=== PATIENT | female | born 1960 | race African-American/Black ===

== ENCOUNTER 2017-08-09 12:20 | Emergency (ER) | payer MEDICARE, OTHER, MEDICAID ==
[2017-08-09 13:11] LABS: Anion Gap 17 mmol/L (10-20); BUN (Urea Nitrogen) 32 mg/dL (9.8-20.1); Calc. Creatinine Clearance 0 mL/min (70-130); Calcium 9.1 mg/dL (7.8-10.44); Carbon Dioxide 22 mmol/L (22-29); Chloride 104 mmol/L (98-107); Estimated GFR-MDRD 27; Glucose 100 mg/dL (70-105); Potassium 3.3 mmol/L (3.5-5.1); Sodium 140 mmol/L (136-145)
[2017-08-09] MEDS ORDERED: Dexamethasone 4 mg/ml Vial ONE (13:19)
[2017-08-09] MEDS ORDERED: Dexamethasone 10 MG/ML VIAL ONE (13:19)
== END 2017-08-09 13:37 | disposition home or self-care (01) ==
LOC: SCSER 12:20
DX: M10.9 Gout, unspecified (principal); G40.909 Epilepsy, unspecified, not intractable, without status epilepticus; E11.9 Type 2 diabetes mellitus without complications; E78.5 Hyperlipidemia, unspecified; I10 Essential (primary) hypertension; Z79.84 Long term (current) use of oral hypoglycemic drugs; Z79.899 Other long term (current) drug therapy
CPT/HCPCS: 36415; 80048; 96372; J1100

== ENCOUNTER 2018-10-06 14:53 | Emergency (ER) | payer MEDICARE, MEDICAID ==
--- NOTE | 2018-10-06 15:39 | RAD ---
FOUR VIEWS OF THE RIGHT KNEE: 10/06/18 COMPARISON: None. HISTORY: Right knee pain. FINDINGS: Four views of the right knee shows no evidence of acute fracture or dislocation. No significant dege nerative changes are seen. No knee effusion is present. IMPRESSION: No evidence of acute osseous abnormality. POS: [facility]
== END 2018-10-06 16:04 | disposition home or self-care (01) ==
LOC: SCSER 14:53
DX: K04.4 Acute apical periodontitis of pulpal origin (principal); M25.561 Pain in right knee; E11.9 Type 2 diabetes mellitus without complications; E78.5 Hyperlipidemia, unspecified; I10 Essential (primary) hypertension; M10.9 Gout, unspecified

== ENCOUNTER 2018-10-15 11:38 | Outpatient (CLI) | payer MEDICARE, MEDICAID ==
--- NOTE | 2018-10-15 12:25 | MMO ---
Bilateral MAMMO Bilat Screen [facility]. CLINICAL HISTORY: Patient is 57 years old and is seen for screening. The patient has the following family history of breast cancer: mother, at age 33. The patient has no personal history of cancer. VIEWS: The views performed were: bilateral craniocaudal with tomosynthesis and bilateral mediolateral oblique with tomosynthesis. FILMS COMPARED: The present examination has been compared to prior imaging studies performed at [facility] on 09/23/2012, 07/07/2015 and 05/13/2017. MAMMOGRAM FINDINGS: There are scattered fibroglandular densities. There are stable benign appearing calcifications seen in both breasts. There are no suspicious masses, suspicious calcifications, or new areas of architectural distortion. IMPRESSION: THERE IS NO MAMMOGRAPHIC EVIDENCE OF MALIGNANCY. A ROUTINE FOLLOW-UP MAMMOGRAM IN 1 YEAR IS RECOMMENDED. THE RESULTS OF THIS EXAM WERE SENT TO THE PATIENT. ACR BI-RADS Category 2 - Benign finding MAMMOGRAPHY NOTE: 1. A negative mammogram report should not delay a biopsy if a dominant of clinically suspicious mass is present. 2. Approximately 10% to 15% of breast cancers are not detected by mammography. 3. Adenosis and dense breasts may obscure an underlying neoplasm.
== END 2018-10-15 11:39 | disposition home or self-care (01) ==
LOC: BICMAMMO 11:38
PROVIDERS: ATTEND Nurse Practitioner Family
DX: Z12.31 Encounter for screening mammogram for malignant neoplasm of breast (principal); Z80.3 Family history of malignant neoplasm of breast
CPT/HCPCS: 77063; 77067

== ENCOUNTER 2018-11-30 07:51 | Observation (INO) | payer MEDICARE, MEDICAID ==
[2018-11-30 08:14] LABS: #Eosinphils 0.3 thou/uL (0.0-0.7); #Lymphocytes 2.3 thou/uL (1.20-3.40); #Monocytes 0.6 thou/uL (0.11-0.59); #Neutrophils 4.8 thou/uL (1.40-6.50); %Basophils 0.2 % (0.0-1.0); %Eosinophils 3.5 % (0.0-10.0); %Lymphocytes 29.3 % (21.0-51.0); %Monocytes 7.1 % (0.0-10.0); Hemoglobin 9.2 g/dL (12.0-16.0); Mean Corpuscular HGB CONC 33.3 g/dL (32.0-36.0); Mean Corpuscular Hemoglobin 32.8 pg (27.0-31.0); Mean Corpuscular Volume 98.6 fL (78.0-98.0); Mean Platelet Volume 7.5 fL (7.4-10.4); Platelet Count 422 thou/uL (130-400); RBC Distribution Width 11.5 % (11.5-14.5); Red Blood Cell (RBC) Count 2.82 mill/uL (4.20-5.40)
[2018-11-30 08:15] LABS: Prothrombin Time 12.7 SEC (12.0-14.7)
[2018-11-30 08:16] LABS: PTT 37.7 SEC (22.9-36.1)
[2018-11-30] MEDS ORDERED: Sodium Bicarbonate 2.5 MEQ/5 ML VIAL ONE (10:15)
[2018-11-30] MEDS ORDERED: Midazolam HCl 2 mg/2 ml Vial ONE (10:15)
[2018-11-30] MEDS ORDERED: Fentanyl 100 MCG/2 ML VIAL ONE (10:16)
[2018-11-30 13:49] LABS: Hemoglobin 9.3 g/dL (12.0-16.0); Platelet Count 361 thou/uL (130-400)
--- NOTE | 2018-11-30 16:19 | CT ---
CT-guided random renal biopsy: DATE: 11/30/2018 HISTORY: 58-year-old female with stage IV chronic kidney disease and deteriorating renal function. TECHNIQUE: Signed informed consent obtained. Patient placed prone on CT table. Procedure performed under step CT guidance. Skin of right flank prepared and draped in usual sterile fashion. 25-gauge needle used to apply buffered lidocaine superficially. 17-gauge introducer needle advanced to junction between la teral edge of right psoas muscle and medial edge of posterior abdominal wall musculature. Additional buffered lidocaine applied at that location. Introducer needle further advanced into the p osterior cortex of the lower pole of the right kidney. Stylette removed. 18-gauge biopsy needle advanced through the introducer needle in coaxial fashion. Biopsy gun fired, yielding 2.3 cm core tis leobardo sample which was given to Dr. Brandon of pathology who analyzed the tissue sample under light microscopy, identifying 1 or 2 glomeruli. The 18-gauge needle was again fired into the lower pole par enchyma yielding a second 2.3 cm core tissue sample, also given to the pathologist. The introducer needle was removed. Patient tolerated the procedure well. Immediate post procedure supine scan of ent chitra abdomen and pelvis noncontrast, as per routine by Dr. Viera. Repeat CTs of abdomen and pelvis at 2 hours and 3 hours post biopsy. It was elected to admit the patient overnight for observation becaus e of the retroperitoneal hematoma. The patient is doing well clinically, with no distress or pain, and is alert and oriented. Hemoglobin and hematocrit levels remain stable from preprocedure to post p rocedure. Blood pressure and heart rate remained stable. The patient is hypertensive. FINDINGS: Intraprocedural image demonstrates the introducer needle distal tip embedded a few millimeters into t he posterior cortical surface of the right renal lower pole. CT scan immediately after the biopsy demonstrates moderate size right inferior perirenal hematoma. No free fluid in the cul-de-sac. No hyd ronephrosis. No renal, ureteral, or bladder calculus. No ascites. Within the limitations of a noncontrast scan, no abnormality identified involving liver, pancreas, adrenals, abdominal aorta, lef t kidney, bladder, and spleen. No small bowel dilation. Lung bases are clear. Incidental finding of porcelain gallbladder. 2 hour post procedure image demonstrates slight interval increase in size of r ight inferior perirenal hematoma, and interval increase in density of the fluid, plus new finding of fat stranding around hematoma. Third CT performed 3 hours after procedure demonstrates no interval change compared to the 2 hour post procedure images. IMPRESSION: 1. Technically successful 18-gauge core biopsy x2 of right renal lower pole yielding 2 separate 2.3 c m tissue samples. 2. Moderate-sized right inferior perirenal hematoma. 3. Although the patient is hemodynamically stable and doing very well clinically, she is being admitt ed to the hospitalist overnight for observation, as a precautionary measure.
[2018-11-30 16:57] LABS: Hemoglobin 9.4 g/dL (12.0-16.0)
[2018-11-30 16:59] VITALS: BMI 35.1
[2018-11-30] MEDS ORDERED: Acetaminophen/Codeine 30-300mg Tablet PO PRN (17:37)
[2018-11-30] MEDS ORDERED: Labetalol HCl 100 MG/20 ML VIAL SLOW IVP PRN (18:22)
[2018-11-30] MEDS ORDERED: Acetaminophen 325 MG TAB PO PRN (18:50)
[2018-11-30] MEDS ORDERED: Dextrose 5% in Water 1,000 ML IV PRN (18:50)
[2018-11-30] MEDS ORDERED: Ondansetron PF 4 MG/2 ML Vial IVP PRN (18:50)
[2018-11-30] MEDS ORDERED: Ondansetron ODT 4 MG TAB PO PRN (18:50)
[2018-11-30] MEDS ORDERED: Dextrose 50% Abboject 50 ML SYRINGE SLOW IVP PRN (18:50)
[2018-11-30] MEDS ORDERED: HumaLOG 300 UNITS/3 ML VIAL SC PRN ×2 (18:50)
[2018-11-30 19:27] LABS: Hemoglobin 9.1 g/dL (12.0-16.0); Platelet Count 373 thou/uL (130-400)
[2018-11-30] MEDS: cloNIDine 0.1 MG TAB PO SCH (22:24)
[2018-11-30] MEDS: Lisinopril 20 MG TAB PO SCH (22:24)
[2018-11-30] MEDS: NIFEdipine XL 60 MG TAB PO SCH (22:24)
[2018-12-01 00:38] LABS: Hemoglobin 9.3 g/dL (12.0-16.0); Platelet Count 391 thou/uL (130-400)
--- NOTE | 2018-12-01 03:08 | HP ---
PRIMARY CARE PHYSICIAN: Toshia Kim. CHIEF COMPLAINT: Right perirenal hematoma. HISTORY OF PRESENT ILLNESS: Ms. Connors is a 58-year-old female with past medical history of hypertension, hyperlipidemia, diabetes mellitus, gout, generalized seizure disorder, chronic kidney disease stage 4, who was undergoing a CT-guided renal biopsy earlier today when she had developed a right perirenal hematoma. Repeat image showed that this hematoma was stable, H and H was trended and was found to be also stable. It was further determined the patient be monitored overnight under observation for any worsening or drop in her hemoglobin or other lab work. The patient's primary hazmat cdl driver is Dr. Max. The patient denied any fever, chills, any headache, blurred vision, dizziness, chest pain, palpitations, shortness of breath, abdominal pain, nausea, vomiting, flank pain, or any blood in her urine. She is essentially asymptomatic at this time and shows no symptoms of this hematoma. The patient's blood pressure was found to be slightly elevated. However, she had not taken her home medications earlier. Dr. Max was consulted and will follow along during hospital course. REVIEW OF SYSTEMS: All other systems reviewed and found to be negative unless mentioned in HPI. PAST MEDICAL HISTORY: Significant for hypertension, hyperlipidemia, gout, generalized seizure disorder, diabetes mellitus type 2, chronic kidney disease stage 4. PAST SURGICAL HISTORY: Cholecystectomy and hernia repair. PSYCHIATRIC HISTORY: None. SOCIAL HISTORY: The patient lives at home. She denies any alcohol, tobacco, or illicit drug use. KNOWN ALLERGIES: No known drug allergies. CURRENT HOME MEDICATIONS: 1. Phenytoin 300 mg p.o. daily and 400 mg p.o. at bedtime. 2. Nifedipine 60 mg p.o. b.i.d. 3. Lisinopril 20 mg p.o. b.i.d. 4. Hydrochlorothiazide 25 mg p.o. daily. 5. Clonidine 0.1 mg p.o. t.i.d. 6. Allopurinol 100 mg p.o. daily. 7. Acetaminophen with codeine 300/30 mg p.o. q.6 hours p.r.n. pain. 8. Omeprazole 40 mg p.o. daily. 9. Metformin 1000 mg p.o. b.i.d. 10. Fenofibrate 145 mg p.o. daily. 11. Vitamin D3 2000 units p.o. daily. PHYSICAL EXAMINATION: VITAL SIGNS: BP 161/91, pulse 101, respirations 20, temperature 98.2 degrees Fahrenheit, O2 saturation 97% on room air. GENERAL: The patient is awake, alert, and oriented x3. She is currently lying comfortably in bed and in no acute distress. HEENT: Atraumatic, normocephalic. Pupils are round and reactive to light. Extraocular muscles intact. Moist mucous membranes noted. Poor oral hygiene noted. Several teeth missing. NECK: Soft and supple. Trachea midline. CARDIOVASCULAR: Positive S1 and S2. Regular rate and rhythm. No murmur auscultated. RESPIRATORY: Clear to auscultation bilaterally. No wheezes, rales, or rhonchi. ABDOMEN: Soft, nontender. Bowel sounds present. MUSCULOSKELETAL: Strength 5+ bilaterally in upper and lower extremities. Moves all extremities equal. Pedal and radial pulses 2+ bilaterally. No edema noted. NEUROLOGIC: Cranial nerves 2 through 12 grossly intact. No focal deficits noted. Speech intact and normal. Gait not assessed. SKIN: Warm, dry, and intact. No rashes. No ulceration noted. PSYCHIATRIC: Good mood and affect. LABORATORY DATA: WBC 8.0, RBC 2.82, hemoglobin 9.4, hematocrit 27.5, platelets 361. PT 12.7, INR 1.0, PTT 37.7. DIAGNOSTIC IMAGING: CT-guided renal biopsy was successful, core biopsy x2 over right renal lower pole yielding two separate 2.7 cm tissue samples with moderate size right inferior perirenal hematoma. ASSESSMENT AND PLAN: 1. Moderate-size right inferior perirenal hematoma, the patient remains hemodynamically stable and no further symptoms at this time. We will check serial H and Hs q.6 hours and check urinalysis in the a.m. Dr. Max was also consulted for further evaluation and management. 2. Hypertension. The patient will be restarted on her home regimen. She will also be treated with IV p.r.n. antihypertensives. 3. Hyperlipidemia. Continue home statin. 4. Diabetes mellitus. The patient will be started on insulin sliding scale with frequent Accu-Cheks. Her home dose of metformin will be held at this time. 5. Chronic kidney disease stage 4. Dr. Max is consulted for further recommendations. Recheck BMP in the morning. 6. Generalized seizure disorder, currently stable at this time. Continue home regimen. 7. History of gout. Continue the patient's home regimen of allopurinol. 8. Deep venous thrombosis and gastrointestinal prophylaxis. We will hold anticoagulation at this time due to patient's right inferior perirenal hematoma and risk of bleeding. 9. Code status, full code. DISPOSITION: Pending further workup and clinical findings, the patient will likely be monitored overnight and discharge tomorrow if stable. Job ID: [id number]
[2018-12-01 05:37] LABS: #Eosinphils 0.3 thou/uL (0.0-0.7); #Lymphocytes 2.5 thou/uL (1.20-3.40); #Monocytes 0.7 thou/uL (0.11-0.59); #Neutrophils 5.1 thou/uL (1.40-6.50); %Basophils 0.1 % (0.0-1.0); %Eosinophils 3.1 % (0.0-10.0); %Lymphocytes 28.9 % (21.0-51.0); %Monocytes 8.4 % (0.0-10.0); %Neutrophils 59.5 % (42.0-75.0); Hemoglobin 8.4 g/dL (12.0-16.0); Mean Corpuscular Hemoglobin 34.1 pg (27.0-31.0); Mean Platelet Volume 7.6 fL (7.4-10.4); Platelet Count 342 thou/uL (130-400); RBC Distribution Width 11.6 % (11.5-14.5); Red Blood Cell (RBC) Count 2.46 mill/uL (4.20-5.40); White Blood Cell (WBC) Count 8.6 thou/uL (4.8-10.8)
[2018-12-01 06:01] LABS: Anion Gap 16 mmol/L (10-20); BUN (Urea Nitrogen) 47 mg/dL (9.8-20.1); Calc. Creatinine Clearance 30 mL/min (70-130); Calcium 9.4 mg/dL (7.8-10.44); Carbon Dioxide 19 mmol/L (22-29); Chloride 104 mmol/L (98-107); Estimated GFR-MDRD 20; Glucose 87 mg/dL (70-105); Sodium 135 mmol/L (136-145)
[2018-12-01 06:11] LABS: Bilirubin Negative (Negative); Blood, Urine Trace (Negative); Glucose, Urine (Dipstick) Negative (Negative); Leukocyte Negative (Negative); Nitrite Negative (Negative); Protein, Urine (Dipstick) 100 mg/dL (Neg-Trace); Urobilinogen 0.2 mg/dL (Less than 2)
[2018-12-01 06:12] LABS: Clarity Clear (Clear)
[2018-12-01 06:16] LABS: Bacteria/HPF 1+ HPF (None Seen); WBC/HPF 0-3 HPF (0-3)
--- NOTE | 2018-12-01 08:04 | CON ---
DATE OF CONSULTATION: 11/30/2018 CONSULTING PHYSICIAN: Munir Olivas MD REASON FOR CONSULTATION: Bleeding after renal biopsy. REASON FOR ADMISSION: Bleeding. HISTORY OF PRESENT ILLNESS: A 58-year-old female with history of chronic kidney disease, hypertension, type 2 diabetes with recent REMY. The patient's creatinine was found to be 3.2 to 3.4 from her baseline of 2.1 with a significant amount of proteinuria around 1.8 g and she denies any longstanding history of type 2 diabetes. The patient was having a kidney biopsy today; post biopsy, she was found to have a hematoma, which was getting denser and she was admitted for further evaluation and monitoring. Her hemoglobin was stable and blood pressure was stable. She denies any symptoms. No hematuria. No chest pain or palpitation. PAST MEDICAL HISTORY: Positive for hypertension, type 2 diabetes, hyperlipidemia, seizure, gout, GERD. PAST SURGICAL HISTORY: None. Renal biopsy recently. HOME MEDICATIONS: Include; 1. Catapres. 2. Vitamin D3. 3. Zestril. 4. Hydrochlorothiazide. 5. Fenofibrate. 6. Metformin. 7. Omeprazole. 8. Penicillin . 9. Tylenol. 10. Nifedipine. SOCIAL HISTORY: No smoking, alcohol, or illicit drug abuse. FAMILY HISTORY: No history of kidney disease. REVIEW OF SYSTEMS: CONSTITUTIONAL: Negative for weight loss or gain, ability to conduct usual activities. SKIN: Negative for rash, itching. EYES: Negative for double vision, pain. ENT/MOUTH: Negative for nose bleeding, neck stiffness, pain, tenderness. CARDIOVASCULAR: Negative for palpitations, dyspnea on exertion, orthopnea. RESPIRATORY: Negative for shortness of breath, wheezing, cough, hemoptysis, fever or night sweats. GASTROINTESTINAL: Negative for poor appetite, abdominal pain, heartburn, nausea, vomiting, constipation, or diarrhea. GENITOURINARY: Negative for urgency, frequency, dysuria, nocturia. MUSCULOSKELETAL: Negative for pain, swelling. NEUROLOGIC/PSYCHIATRIC: Negative for anxiety, depression. ALLERGY/IMMUNOLOGIC: Negative for skin rash, bleeding tendency. PHYSICAL EXAMINATION: GENERAL: This is a well-built female, in no apparent distress. VITAL SIGNS: Temperature 99, pulse 98, respiratory rate 16, blood pressure 139/91. LABORATORY DATA: Hemoglobin is 9.1. ASSESSMENT AND PLAN: 1. Acute kidney injury on chronic kidney disease stage 4. We will monitor. Proteinuria, status post biopsy. 1. Edema, . 2. Anemia. We will monitor. 3. Renal hematoma, status post renal biopsy. We will monitor. If hemoglobin is stable, we will discharge her in stable condition. We will continue to follow. Thank you for the consult. Job ID: [id number]
[2018-12-01] MEDS ORDERED: Hydrochlorothiazide 25 MG TAB PO SCH (09:00)
[2018-12-01] MEDS ORDERED: Allopurinol 100 MG TAB PO SCH (09:00)
[2018-12-01 09:02] LABS: Hemoglobin 9.1 g/dL (12.0-16.0)
[2018-12-01] MEDS: Lisinopril 20 MG TAB PO SCH (09:43)
[2018-12-01] MEDS: cloNIDine 0.1 MG TAB PO SCH (09:44)
[2018-12-01] MEDS: NIFEdipine XL 60 MG TAB PO SCH (09:44)
[2018-12-01 09:50] VITALS: BP 119/71
[2018-12-01 10:16] VITALS: TEMP 98
--- NOTE | 2018-12-01 10:51 | DIS ---
DATE OF ADMISSION: 11/30/2018 DATE OF DISCHARGE: 12/01/2018 CONSULTING PHYSICIAN: Dr. Max, Nephrology. DISCHARGE DIAGNOSES: 1. Right inferior perirenal hematoma following renal biopsy. 2. Hypertension. 3. Hyperlipidemia. 4. Diabetes mellitus. 5. Chronic kidney disease, stage 4. 6. Generalized seizure disorder. 7. Gout. HOSPITAL COURSE: Ms. Connors is a 58-year-old woman, who developed a right perirenal hematoma following a kidney biopsy. She was referred for monitoring with serial H and Hs overnight. The patient was asymptomatic and remains asymptomatic this morning on day of discharge. Dr. Max was consulted and recommended monitoring with plans for discharge if hemoglobin remained stable. Her hemoglobin yesterday was 9.2 at initial presentation. It dropped to 8.4, but has since come back up to 9.1 this morning. The patient continues to again be pain free and without any associated lightheadedness, dizziness, weakness, or shortness of breath. No abdominal pain. She has been tolerating oral intake and denies any nausea or vomiting. She has been moving her bowels and denies any urinary symptoms. She has been afebrile. Laboratory studies otherwise showing elevations in her BUN and creatinine (47/3.00). Her GFR is currently 20 and this is close to the last GFR which was 27 in July 2017. The patient will be seen by Dr. Max in 2 weeks and will follow up with her primary care physician within a week. CONDITION: Stable at discharge. ACTIVITY: As tolerated. DIET: Heart healthy/diabetic diet. DISCHARGE MEDICATIONS: The patient was advised to resume her regular home medications. FOLLOWUP: 1. She will follow up with Dr. Max within 2 weeks as recommended by him. 2. The patient advised to follow up with her primary care physician within 1 week. DISPOSITION: The patient is medically cleared for discharge home on 12/01/2018. Job ID: [id number]
--- NOTE | 2018-12-01 14:41 | PRG ---
DATE OF SERVICE: 12/01/2018 SUBJECTIVE: Patient was seen and examined at bedside and overnight events noted. Patient denies any shortness of breath or chest pain or palpitation. No history of nausea or vomiting or diarrhea or fever or chills or cramps. OBJECTIVE: GENERAL: This is a well-built female, in no apparent distress. VITAL SIGNS: Temperature 98.7. Heart rate 93. Respiratory rate 17. Blood pressure 119/71. HEENT: Atraumatic, normocephalic. Oral mucosa is moist NECK: Supple. CARDIOVASCULAR: S1, S2 heard. Rate and rhythm regular. RESPIRATORY: Clear to auscultation. GASTROINTESTINAL: Abdomen is soft. MUSCULOSKELETAL: No tenderness. No edema. DERMATOLOGIC: No skin rash. NEUROLOGIC: Alert and awake and oriented X3. No focal neurologic deficits. Moving all the extremities. PSYCHIATRIC: Mood and affect normal. LABORATORY DATA: Hemoglobin is 9.1, creatinine is 3.0. ASSESSMENT AND PLAN: 1. Acute kidney injury on chronic kidney disease, stable. 2. Renal hematoma, stable. 3. Anemia, stable. 4. Edema. The patient was monitored after biopsy, and if she remains stable with vital signs stable and hemoglobin is stable, okay to discharge home. Follow up with the clinic in 1 to 2 weeks. Job ID: [id number]
== END 2018-12-01 11:21 | disposition home or self-care (01) ==
LOC: RAD 07:51 → 2SW 16:28
PROVIDERS: ADMIT Internal Medicine; ATTEND Internal Medicine Nephrology
PROC: 0TB03ZX Excision of Right Kidney, Percutaneous Approach, Diagnostic (ICD-10-PCS; principal; 2018-11-30)
DX: N99.840 Postprocedural hematoma of a genitourinary system organ or structure following a genitourinary system procedure (principal); I12.9 Hypertensive chronic kidney disease with stage 1 through stage 4 chronic kidney disease, or unspecified chronic kidney disease; E11.22 Type 2 diabetes mellitus with diabetic chronic kidney disease; N18.4 Chronic kidney disease, stage 4 (severe); N17.0 Acute kidney failure with tubular necrosis; D63.1 Anemia in chronic kidney disease; G40.909 Epilepsy, unspecified, not intractable, without status epilepticus; M10.9 Gout, unspecified; E11.21 Type 2 diabetes mellitus with diabetic nephropathy; E78.5 Hyperlipidemia, unspecified; K21.9 Gastro-esophageal reflux disease without esophagitis; Z79.84 Long term (current) use of oral hypoglycemic drugs; Z79.2 Long term (current) use of antibiotics; Z79.899 Other long term (current) drug therapy
CPT/HCPCS: 50200; 77012; 80048; 81001; 82962; 85014 ×2; 85018 ×2; 85025 ×2; 85049 ×2; 85610; 85730; 88329; G0378; G0379; 36415; 36416; J2250; J3010

== ENCOUNTER 2019-02-22 12:01 | Day surgery (SDC) | payer MEDICARE, MEDICAID ==
[2019-02-22] MEDS ORDERED: EPOETIN ALFA-EPBX (ESRD) 40,000 UNIT/ML VIAL ONE (12:08)
[2019-02-22 12:24] VITALS: BP 134/79; TEMP 97.8
[2019-02-22] MEDS ORDERED: EPOETIN ALFA-EPBX (ESRD) 40,000 UNIT/ML VIAL SC SCH (12:30)
== END 2019-02-22 12:26 | disposition home or self-care (01) ==
LOC: ONC/OP 12:01
PROVIDERS: ATTEND Internal Medicine Hematology & Oncology
DX: N18.9 Chronic kidney disease, unspecified (principal); D63.1 Anemia in chronic kidney disease
CPT/HCPCS: 96372; Q5105

== ENCOUNTER 2019-03-08 11:38 | Day surgery (SDC) | payer MEDICARE, MEDICAID ==
[2019-03-08] MEDS ORDERED: EPOETIN ALFA-EPBX (ESRD) 40,000 UNIT/ML VIAL ONE (11:42)
[2019-03-08 11:56] VITALS: BP 169/96; TEMP 99.1
[2019-03-08] MEDS ORDERED: EPOETIN ALFA-EPBX (ESRD) 40,000 UNIT/ML VIAL SC SCH (12:30)
== END 2019-03-08 11:57 | disposition home or self-care (01) ==
LOC: ONC/OP 11:38
PROVIDERS: ATTEND Internal Medicine Hematology & Oncology
DX: N18.9 Chronic kidney disease, unspecified (principal); D63.1 Anemia in chronic kidney disease
CPT/HCPCS: 96372; Q5105

== ENCOUNTER 2019-03-22 10:58 | Day surgery (SDC) | payer MEDICARE, MEDICAID ==
[2019-03-22 11:08] VITALS: BP 121/68; TEMP 99.1
[2019-03-22] MEDS ORDERED: EPOETIN ALFA-EPBX (ESRD) 40,000 UNIT/ML VIAL SC SCH (11:15)
== END 2019-03-22 11:30 | disposition home or self-care (01) ==
LOC: ONC/OP 10:58
PROVIDERS: ATTEND Internal Medicine Hematology & Oncology
DX: N18.9 Chronic kidney disease, unspecified (principal); D63.1 Anemia in chronic kidney disease
CPT/HCPCS: 96372; Q5105

== ENCOUNTER 2019-04-05 11:12 | Day surgery (SDC) | payer MEDICARE, MEDICAID ==
[2019-04-05] MEDS ORDERED: EPOETIN ALFA-EPBX (ESRD) 40,000 UNIT/ML VIAL ONE (11:13)
[2019-04-05 11:28] VITALS: BP 135/89; TEMP 98.5
[2019-04-05] MEDS ORDERED: EPOETIN ALFA-EPBX (ESRD) 40,000 UNIT/ML VIAL SC SCH (11:30)
== END 2019-04-05 11:29 | disposition home or self-care (01) ==
LOC: ONC/OP 11:12
PROVIDERS: ATTEND Internal Medicine Hematology & Oncology
DX: N18.9 Chronic kidney disease, unspecified (principal); D63.1 Anemia in chronic kidney disease
CPT/HCPCS: 96372; Q5105

== ENCOUNTER 2019-05-17 10:53 | Day surgery (SDC) | payer MEDICARE, MEDICAID ==
[2019-05-17] MEDS ORDERED: EPOETIN ALFA-EPBX (ESRD) 40,000 UNIT/ML VIAL ONE (10:57)
[2019-05-17] MEDS ORDERED: EPOETIN ALFA-EPBX (ESRD) 40,000 UNIT/ML VIAL SC SCH (11:00)
[2019-05-17 12:31] VITALS: BP 168/101; TEMP 98.6
== END 2019-05-17 12:37 | disposition home or self-care (01) ==
LOC: ONC/OP 10:53
PROVIDERS: ATTEND Internal Medicine Hematology & Oncology
DX: N18.9 Chronic kidney disease, unspecified (principal); D63.1 Anemia in chronic kidney disease
CPT/HCPCS: 96372; Q5105

== ENCOUNTER 2019-05-31 11:48 | Day surgery (SDC) | payer MEDICARE, MEDICAID ==
[2019-05-31] MEDS ORDERED: EPOETIN ALFA-EPBX (ESRD) 40,000 UNIT/ML VIAL ONE (11:50)
[2019-05-31] MEDS ORDERED: EPOETIN ALFA-EPBX (ESRD) 40,000 UNIT/ML VIAL SC SCH (12:15)
[2019-05-31 12:24] VITALS: BP 176/99; TEMP 98.6
== END 2019-05-31 12:31 | disposition home or self-care (01) ==
LOC: ONC/OP 11:48
PROVIDERS: ATTEND Internal Medicine Hematology & Oncology
DX: N18.9 Chronic kidney disease, unspecified (principal); D63.1 Anemia in chronic kidney disease
CPT/HCPCS: 96372; Q5105

== ENCOUNTER 2019-07-05 10:29 | Day surgery (SDC) | payer MEDICARE, MEDICAID ==
[2019-07-05] MEDS ORDERED: EPOETIN ALFA-EPBX (ESRD) 40,000 UNIT/ML VIAL ONE (10:31)
[2019-07-05 10:37] VITALS: BP 111/68; TEMP 98.6
[2019-07-05] MEDS ORDERED: EPOETIN ALFA-EPBX (ESRD) 40,000 UNIT/ML VIAL SC SCH (10:45)
== END 2019-07-05 10:38 | disposition home or self-care (01) ==
LOC: ONC/OP 10:29
PROVIDERS: ATTEND Internal Medicine Hematology & Oncology
DX: N18.9 Chronic kidney disease, unspecified (principal); D63.1 Anemia in chronic kidney disease
CPT/HCPCS: 96372; Q5105

== ENCOUNTER → 2019-07-26 | Day surgery (SDC) | payer MEDICARE, MEDICAID ==
[~2019-07-26] MED LIST: EPOETIN ALFA-EPBX (ESRD) 40,000 UNIT/ML VIAL ONE
[2019-07-26 12:02] VITALS: BP 146/90; TEMP 98.7
== END ==
LOC: ONC/OP 10:47
PROVIDERS: ATTEND Internal Medicine Hematology & Oncology
DX: N18.9 Chronic kidney disease, unspecified (principal); D63.1 Anemia in chronic kidney disease
CPT/HCPCS: 96372; Q5105

== ENCOUNTER 2019-08-09 11:54 | Day surgery (SDC) | payer MEDICARE, MEDICAID ==
[2019-08-09] MEDS ORDERED: EPOETIN ALFA-EPBX (ESRD) 40,000 UNIT/ML VIAL ONE (11:59)
[2019-08-09 13:41] VITALS: BP 139/82
== END 2019-08-09 13:44 | disposition home or self-care (01) ==
LOC: ONC/OP 11:54
PROVIDERS: ATTEND Internal Medicine Hematology & Oncology
DX: N18.9 Chronic kidney disease, unspecified (principal); D63.1 Anemia in chronic kidney disease
CPT/HCPCS: 96372; Q5105

== ENCOUNTER 2019-08-23 11:40 | Emergency (ER) | payer MEDICARE, MEDICAID | END 2019-08-23 13:26 | disposition home or self-care (01) | LOC: ERS 11:40 | DX: N95.1 Menopausal and female climacteric states (principal); R53.81 Other malaise; M10.9 Gout, unspecified; E11.9 Type 2 diabetes mellitus without complications; E78.5 Hyperlipidemia, unspecified; I10 Essential (primary) hypertension | CPT/HCPCS: 36416; 99284 ==

== ENCOUNTER 2019-09-09 10:21 | Day surgery (SDC) | payer MEDICARE, MEDICAID ==
[2019-09-09] MEDS ORDERED: EPOETIN ALFA-EPBX (ESRD) 40,000 UNIT/ML VIAL ONE (10:25)
[2019-09-09 10:36] VITALS: BP 172/92; TEMP 97.8
== END 2019-09-09 10:40 | disposition home or self-care (01) ==
LOC: ONC/OP 10:21
PROVIDERS: ATTEND Internal Medicine Hematology & Oncology
DX: N18.9 Chronic kidney disease, unspecified (principal); D63.1 Anemia in chronic kidney disease
CPT/HCPCS: 96372; Q5105

== ENCOUNTER 2019-11-12 11:12 | Day surgery (SDC) | payer MEDICARE, MEDICAID ==
[2019-11-12] MEDS ORDERED: EPOETIN ALFA-EPBX (ESRD) 40,000 UNIT/ML VIAL ONE (11:16)
[2019-11-12] MEDS ORDERED: EPOETIN ALFA-EPBX (ESRD) 40,000 UNIT/ML VIAL SC SCH (11:30)
== END 2019-11-12 11:23 | disposition home or self-care (01) ==
LOC: ONC/OP 11:12
PROVIDERS: ATTEND Internal Medicine Hematology & Oncology
DX: N18.9 Chronic kidney disease, unspecified (principal); D63.1 Anemia in chronic kidney disease
CPT/HCPCS: 36415; 82728; 96372; Q5105

== ENCOUNTER 2019-12-23 09:27 | Day surgery (SDC) | payer MEDICARE, MEDICAID ==
[2019-12-23] MEDS ORDERED: EPOETIN ALFA-EPBX (ESRD) 40,000 UNIT/ML VIAL ONE (09:28)
[2019-12-23 09:37] VITALS: BP 152/87; TEMP 97.7
[2019-12-23] MEDS ORDERED: EPOETIN ALFA-EPBX (ESRD) 40,000 UNIT/ML VIAL SC SCH (09:45)
== END 2019-12-23 09:37 | disposition home or self-care (01) ==
LOC: ONC/OP 09:27
PROVIDERS: ATTEND Internal Medicine Hematology & Oncology
DX: N18.9 Chronic kidney disease, unspecified (principal); D63.1 Anemia in chronic kidney disease
CPT/HCPCS: 96372; Q5105

== ENCOUNTER 2020-02-03 11:58 | Day surgery (SDC) | payer MEDICARE, MEDICAID ==
[~2020-02-03 11:58] MED LIST changes: -EPOETIN ALFA-EPBX (ESRD) 40,000 UNIT/ML VIAL ONE; +EPOETIN ALFA-EPBX (NON-ESRD) 40,000 UNIT/ML VIAL SC PRN
[2020-02-03] MEDS ORDERED: EPOETIN ALFA-EPBX (ESRD) 40,000 UNIT/ML VIAL SC PRN (12:11)
[2020-02-03 12:34] VITALS: BP 140/89; TEMP 97.3
== END 2020-02-03 12:36 | disposition home or self-care (01) ==
LOC: ONC/OP 11:58
PROVIDERS: ATTEND Internal Medicine Hematology & Oncology
DX: N18.9 Chronic kidney disease, unspecified (principal); D63.1 Anemia in chronic kidney disease
CPT/HCPCS: 96372; Q5106

== ENCOUNTER 2020-02-15 10:33 | Outpatient (CLI) | payer MEDICARE, MEDICAID ==
--- NOTE | 2020-02-15 11:15 | ULT ---
RIGHT UPPER QUADRANT ULTRASOUND CLINICAL HISTORY: Elevated alkaline phosphatase. COMPARISON: None FINDINGS: Liver:Normal echotexture without focal mass. Intrahepatic bile ducts: No intrahepatic or extrahepatic biliary dilation.; Common bile duct: 4 mm. Gallbladder: Normal appearing. Trotter's sign:None Main portal vein:Patent with hepatopedal flow. Pancreas:Visualized pancreas appears normal. Right kidney: Right kidney measures 11.9 x 6.1 x 4.8 cm. No focal renal lesion or hydronephrosis. Additional findings: None. IMPRESSION: Normal RUQ ultrasound.
== END 2020-02-15 10:34 | disposition home or self-care (01) ==
LOC: BICULT 10:33
PROVIDERS: ATTEND Family Medicine
DX: R74.8 Abnormal levels of other serum enzymes (principal)
CPT/HCPCS: 76705

== ENCOUNTER 2020-03-17 11:02 | Day surgery (SDC) | payer MEDICARE, MEDICAID ==
[2020-03-17] MEDS ORDERED: EPOETIN ALFA-EPBX (ESRD) 40,000 UNIT/ML VIAL ONE (11:13)
[2020-03-17] MEDS ORDERED: EPOETIN ALFA-EPBX (ESRD) 40,000 UNIT/ML VIAL SC SCH (11:15)
[2020-03-17 11:26] VITALS: BP 137/94
== END 2020-03-17 11:32 | disposition home or self-care (01) ==
LOC: ONC/OP 11:02
PROVIDERS: ATTEND Internal Medicine Hematology & Oncology
DX: N18.9 Chronic kidney disease, unspecified (principal); D63.1 Anemia in chronic kidney disease
CPT/HCPCS: 96372; Q5105

== ENCOUNTER 2020-04-11 11:12 | Day surgery (SDC) | payer MEDICARE, MEDICAID ==
[2020-04-11] MEDS ORDERED: EPOETIN ALFA-EPBX (ESRD) 40,000 UNIT/ML VIAL SC SCH (11:30)
[2020-04-11 11:31] VITALS: BP 138/87; TEMP 99.8
== END 2020-04-11 11:33 | disposition home or self-care (01) ==
LOC: ONC/OP 11:12
PROVIDERS: ATTEND Internal Medicine Hematology & Oncology
DX: N18.9 Chronic kidney disease, unspecified (principal); D63.1 Anemia in chronic kidney disease
CPT/HCPCS: 96372

== ENCOUNTER 2020-05-02 11:27 | Day surgery (SDC) | payer MEDICARE, MEDICAID ==
[2020-05-02 11:34] VITALS: BP 132/75; TEMP 98.7
[2020-05-02] MEDS ORDERED: EPOETIN ALFA-EPBX (ESRD) 40,000 UNIT/ML VIAL SC SCH (11:45)
== END 2020-05-02 12:15 | disposition home or self-care (01) ==
LOC: ONC/OP 11:27
PROVIDERS: ATTEND Internal Medicine Hematology & Oncology
DX: N18.9 Chronic kidney disease, unspecified (principal); D63.1 Anemia in chronic kidney disease
CPT/HCPCS: 96372; Q5105

== ENCOUNTER 2020-05-12 10:54 | Day surgery (SDC) | payer MEDICARE, MEDICAID ==
[2020-05-12] MEDS ORDERED: EPOETIN ALFA-EPBX (ESRD) 40,000 UNIT/ML VIAL ONE (10:58)
[2020-05-12 11:07] VITALS: BP 126/77
[2020-05-12] MEDS ORDERED: EPOETIN ALFA-EPBX (ESRD) 40,000 UNIT/ML VIAL SC SCH (11:30)
== END 2020-05-12 11:15 | disposition home or self-care (01) ==
LOC: ONC/OP 10:54
PROVIDERS: ATTEND Internal Medicine Hematology & Oncology
DX: N18.9 Chronic kidney disease, unspecified (principal); D63.1 Anemia in chronic kidney disease
CPT/HCPCS: 96375; Q5105

== ENCOUNTER 2020-05-30 11:10 | Day surgery (SDC) | payer MEDICARE, MEDICAID ==
[2020-05-30] MEDS ORDERED: EPOETIN ALFA-EPBX (ESRD) 40,000 UNIT/ML VIAL SC SCH (11:15)
[2020-05-30 11:24] VITALS: BP 145/76; TEMP 98
== END 2020-05-30 11:25 | disposition home or self-care (01) ==
LOC: ONC/OP 11:10
PROVIDERS: ATTEND Internal Medicine Hematology & Oncology
DX: N18.9 Chronic kidney disease, unspecified (principal); D63.1 Anemia in chronic kidney disease
CPT/HCPCS: 96372; Q5105

== ENCOUNTER 2020-06-06 11:15 | Day surgery (SDC) | payer MEDICARE, MEDICAID ==
[2020-06-06] MEDS ORDERED: EPOETIN ALFA-EPBX (ESRD) 40,000 UNIT/ML VIAL ONE (11:19)
[2020-06-06 11:39] VITALS: BP 153/97; TEMP 98
[2020-06-06] MEDS ORDERED: EPOETIN ALFA-EPBX (ESRD) 40,000 UNIT/ML VIAL SC SCH (12:30)
== END 2020-06-06 11:39 | disposition home or self-care (01) ==
LOC: ONC/OP 11:15
PROVIDERS: ATTEND Internal Medicine Hematology & Oncology
DX: N18.9 Chronic kidney disease, unspecified (principal); D63.1 Anemia in chronic kidney disease
CPT/HCPCS: 36415; 82728; 83540; 83550; 96372; Q5105

== ENCOUNTER 2020-06-13 10:56 | Day surgery (SDC) | payer MEDICARE, MEDICAID ==
[~2020-06-13 10:56] MED LIST changes: -EPOETIN ALFA-EPBX (NON-ESRD) 40,000 UNIT/ML VIAL SC PRN; +Ferumoxytol (ERSD) 510 MG in Sodium Chloride 0.9% 250 ML 150 ML IVPB SCH
[2020-06-13] MEDS ORDERED: Sodium Chloride 0.9% 20 ML ONE (11:31)
[2020-06-13 14:03] VITALS: BP 146/83
== END 2020-06-13 14:21 | disposition home or self-care (01) ==
LOC: ONC/OP 10:56
PROVIDERS: ATTEND Internal Medicine Hematology & Oncology
DX: N18.9 Chronic kidney disease, unspecified (principal); D63.1 Anemia in chronic kidney disease
CPT/HCPCS: 96365; J7050; Q0139

== ENCOUNTER 2020-06-20 10:50 | Day surgery (SDC) | payer MEDICARE, MEDICAID ==
[~2020-06-20 10:50] MED LIST changes: +EPOETIN ALFA-EPBX (ESRD) 40,000 UNIT/ML VIAL SC SCH
[2020-06-20 11:08] VITALS: BP 141/86; TEMP 97.7
== END 2020-06-20 12:09 | disposition home or self-care (01) ==
LOC: ONC/OP 10:50
PROVIDERS: ATTEND Internal Medicine Hematology & Oncology
DX: N18.9 Chronic kidney disease, unspecified (principal); D63.1 Anemia in chronic kidney disease
CPT/HCPCS: 96365; 96372; J7050; Q0139; Q5105

== ENCOUNTER 2020-08-01 10:40 | Day surgery (SDC) | payer MEDICARE, MEDICAID ==
[2020-08-01] MEDS ORDERED: EPOETIN ALFA-EPBX (ESRD) 40,000 UNIT/ML VIAL ONE (10:51)
[2020-08-01 10:56] VITALS: BP 136/77
== END 2020-08-01 10:57 | disposition home or self-care (01) ==
LOC: ONC/OP 10:40
PROVIDERS: ATTEND Internal Medicine Hematology & Oncology
DX: N18.9 Chronic kidney disease, unspecified (principal); D63.1 Anemia in chronic kidney disease
CPT/HCPCS: 96372; Q5105

== ENCOUNTER 2020-08-15 10:34 | Day surgery (SDC) | payer MEDICARE, MEDICAID ==
[2020-08-15] MEDS ORDERED: EPOETIN ALFA-EPBX (ESRD) 40,000 UNIT/ML VIAL ONE (10:36)
[2020-08-15] MEDS ORDERED: EPOETIN ALFA-EPBX (ESRD) 40,000 UNIT/ML VIAL SC SCH (10:45)
[2020-08-15 11:24] VITALS: BP 157/82; TEMP 98
== END 2020-08-15 11:27 | disposition home or self-care (01) ==
LOC: ONC/OP 10:34
PROVIDERS: ATTEND Internal Medicine Hematology & Oncology
DX: N18.9 Chronic kidney disease, unspecified (principal); D63.1 Anemia in chronic kidney disease
CPT/HCPCS: 96372; Q5105

== ENCOUNTER 2020-08-29 10:55 | Day surgery (SDC) | payer MEDICARE, MEDICAID ==
[2020-08-29] MEDS ORDERED: EPOETIN ALFA-EPBX (ESRD) 40,000 UNIT/ML VIAL ONE (11:00)
[2020-08-29 11:02] VITALS: BP 139/79; TEMP 98.3
[2020-08-29] MEDS ORDERED: EPOETIN ALFA-EPBX (ESRD) 40,000 UNIT/ML VIAL SC SCH (11:30)
== END 2020-08-29 11:05 | disposition home or self-care (01) ==
LOC: ONC/OP 10:55
PROVIDERS: ATTEND Internal Medicine Hematology & Oncology
DX: N18.9 Chronic kidney disease, unspecified (principal); D63.1 Anemia in chronic kidney disease
CPT/HCPCS: 96372; Q5105

== ENCOUNTER 2020-09-19 10:50 | Day surgery (SDC) | payer MEDICARE, MEDICAID ==
[2020-09-19 13:53] VITALS: BP 121/77; TEMP 98.1
== END 2020-09-19 13:54 | disposition home or self-care (01) ==
LOC: ONC/OP 10:50
PROVIDERS: ATTEND Internal Medicine Hematology & Oncology
DX: N18.9 Chronic kidney disease, unspecified (principal); D63.1 Anemia in chronic kidney disease
CPT/HCPCS: 96372

== ENCOUNTER 2020-09-29 15:13 | Outpatient (CLI) | payer MEDICARE, MEDICAID | END 2020-09-29 15:14 | disposition home or self-care (01) | LOC: BICRAD 15:13 | PROVIDERS: ATTEND Family Medicine | DX: M54.5 Low back pain (principal); M47.816 Spondylosis without myelopathy or radiculopathy, lumbar region | CPT/HCPCS: 72100 ==

== ENCOUNTER 2020-10-03 10:43 | Day surgery (SDC) | payer MEDICARE, MEDICAID ==
[2020-10-03] MEDS ORDERED: EPOETIN ALFA-EPBX (ESRD) 40,000 UNIT/ML VIAL ONE (10:45)
[2020-10-03 10:49] VITALS: BP 169/90; TEMP 98.3
[2020-10-03] MEDS ORDERED: EPOETIN ALFA-EPBX (ESRD) 40,000 UNIT/ML VIAL SC SCH (11:00)
== END 2020-10-03 10:50 | disposition home or self-care (01) ==
LOC: ONC/OP 10:43
PROVIDERS: ATTEND Internal Medicine Hematology & Oncology
DX: N18.9 Chronic kidney disease, unspecified (principal); D63.1 Anemia in chronic kidney disease
CPT/HCPCS: 96372; Q5105

== ENCOUNTER 2020-10-17 10:46 | Day surgery (SDC) | payer MEDICARE, MEDICAID ==
[2020-10-17] MEDS ORDERED: EPOETIN ALFA-EPBX (ESRD) 40,000 UNIT/ML VIAL ONE (10:49)
[2020-10-17 10:59] VITALS: BP 157/95; TEMP 97.9
== END 2020-10-17 11:01 | disposition home or self-care (01) ==
LOC: ONC/OP 10:46
PROVIDERS: ATTEND Internal Medicine Hematology & Oncology
DX: N18.9 Chronic kidney disease, unspecified (principal); D63.1 Anemia in chronic kidney disease
CPT/HCPCS: 96372; Q5105

== ENCOUNTER 2020-10-27 11:12 | Outpatient (CLI) | payer MEDICARE, MEDICAID | END 2020-10-27 11:13 | disposition home or self-care (01) | LOC: BICMAMMO 11:12 | PROVIDERS: ATTEND Family Medicine | DX: Z12.31 Encounter for screening mammogram for malignant neoplasm of breast (principal); Z80.3 Family history of malignant neoplasm of breast | CPT/HCPCS: 77063; 77067 ==

== ENCOUNTER 2020-10-31 10:57 | Day surgery (SDC) | payer MEDICARE, MEDICAID ==
[2020-10-31 11:13] VITALS: BP 130/80; TEMP 98.1
[2020-10-31] MEDS ORDERED: EPOETIN ALFA-EPBX (ESRD) 40,000 UNIT/ML VIAL SC SCH (11:15)
== END 2020-10-31 11:15 | disposition home or self-care (01) ==
LOC: ONC/OP 10:57
PROVIDERS: ATTEND Internal Medicine Hematology & Oncology
DX: N18.9 Chronic kidney disease, unspecified (principal); D63.1 Anemia in chronic kidney disease
CPT/HCPCS: 96372; Q5105

== ENCOUNTER 2021-01-15 11:24 | Day surgery (SDC) | payer MEDICARE, MEDICAID, OTHER ==
[2021-01-15] MEDS ORDERED: EPOETIN ALFA-EPBX (ESRD) 40,000 UNIT/ML VIAL ONE (11:31)
[2021-01-15 11:33] VITALS: BP 150/82
[2021-01-15] MEDS ORDERED: EPOETIN ALFA-EPBX (ESRD) 40,000 UNIT/ML VIAL SC SCH (11:45)
== END 2021-01-15 12:05 | disposition home or self-care (01) ==
LOC: ONC/OP 11:24
PROVIDERS: ATTEND Internal Medicine Hematology & Oncology
DX: N18.9 Chronic kidney disease, unspecified (principal); D63.1 Anemia in chronic kidney disease
CPT/HCPCS: 96372; Q5105

== ENCOUNTER 2021-01-31 09:42 | Day surgery (SDC) | payer MEDICARE, MEDICAID ==
[2021-01-31] MEDS ORDERED: EPOETIN ALFA-EPBX (ESRD) 40,000 UNIT/ML VIAL ONE (09:45)
[2021-01-31 09:56] VITALS: BP 157/92
== END 2021-01-31 09:56 | disposition home or self-care (01) ==
LOC: ONC/OP 09:42
PROVIDERS: ATTEND Internal Medicine Hematology & Oncology
DX: N18.9 Chronic kidney disease, unspecified (principal); D63.1 Anemia in chronic kidney disease
CPT/HCPCS: 96372; Q5105

== ENCOUNTER 2021-02-12 10:26 | Day surgery (SDC) | payer MEDICARE, MEDICAID ==
[2021-02-12] MEDS ORDERED: EPOETIN ALFA-EPBX (ESRD) 40,000 UNIT/ML VIAL ONE (10:32)
[2021-02-12 10:42] VITALS: BP 129/84
[2021-02-12] MEDS ORDERED: EPOETIN ALFA-EPBX (ESRD) 40,000 UNIT/ML VIAL SC SCH (11:00)
== END 2021-02-12 10:44 | disposition home or self-care (01) ==
LOC: ONC/OP 10:26
PROVIDERS: ATTEND Internal Medicine Hematology & Oncology
DX: N18.9 Chronic kidney disease, unspecified (principal); D63.1 Anemia in chronic kidney disease
CPT/HCPCS: 36415; 82728; 83540; 83550; 96372; Q5105

== ENCOUNTER 2021-02-26 10:51 | Day surgery (SDC) | payer MEDICARE, MEDICAID ==
[2021-02-26] MEDS ORDERED: EPOETIN ALFA-EPBX (ESRD) 40,000 UNIT/ML VIAL ONE (10:57)
[2021-02-26 11:03] VITALS: BP 159/94; TEMP 98.6
== END 2021-02-26 11:15 | disposition home or self-care (01) ==
LOC: ONC/OP 10:51
PROVIDERS: ATTEND Internal Medicine Hematology & Oncology
DX: N18.9 Chronic kidney disease, unspecified (principal); D63.1 Anemia in chronic kidney disease
CPT/HCPCS: 96372; Q5105

== ENCOUNTER 2021-03-14 11:00 | Day surgery (SDC) | payer MEDICARE, MEDICAID ==
[2021-03-14] MEDS ORDERED: EPOETIN ALFA-EPBX (ESRD) 40,000 UNIT/ML VIAL ONE (11:07)
[2021-03-14 11:13] VITALS: BP 154/84; TEMP 98
[2021-03-14] MEDS ORDERED: EPOETIN ALFA-EPBX (NON-ESRD) 40,000 UNIT/ML VIAL SC SCH (11:15)
== END 2021-03-14 11:14 | disposition home or self-care (01) ==
LOC: ONC/OP 11:00
PROVIDERS: ATTEND Internal Medicine Hematology & Oncology
DX: N18.9 Chronic kidney disease, unspecified (principal); D63.1 Anemia in chronic kidney disease
CPT/HCPCS: 96372; Q5105

== ENCOUNTER 2021-03-26 10:54 | Day surgery (SDC) | payer MEDICARE, MEDICAID ==
[2021-03-26] MEDS ORDERED: EPOETIN ALFA-EPBX (ESRD) 40,000 UNIT/ML VIAL ONE (11:02)
[2021-03-26 11:35] VITALS: BP 142/86; TEMP 97.5
== END 2021-03-26 11:35 | disposition home or self-care (01) ==
LOC: ONC/OP 10:54
PROVIDERS: ATTEND Internal Medicine Hematology & Oncology
DX: N18.9 Chronic kidney disease, unspecified (principal); D63.1 Anemia in chronic kidney disease
CPT/HCPCS: 96372; Q5105

== ENCOUNTER 2021-04-09 10:34 | Day surgery (SDC) | payer MEDICARE, MEDICAID ==
[2021-04-09] MEDS ORDERED: EPOETIN ALFA-EPBX (ESRD) 40,000 UNIT/ML VIAL ONE (10:37)
[2021-04-09 10:44] VITALS: BP 168/99; TEMP 98.5
== END 2021-04-09 10:46 | disposition home or self-care (01) ==
LOC: ONC/OP 10:34
PROVIDERS: ATTEND Internal Medicine Hematology & Oncology
DX: N18.9 Chronic kidney disease, unspecified (principal); D63.1 Anemia in chronic kidney disease
CPT/HCPCS: 96372; Q5105

== ENCOUNTER 2021-04-23 10:11 | Day surgery (SDC) | payer MEDICARE, MEDICAID ==
[2021-04-23 10:24] VITALS: BP 141/82
[2021-04-23] MEDS ORDERED: EPOETIN ALFA-EPBX (ESRD) 40,000 UNIT/ML VIAL ONE (10:24)
== END 2021-04-23 10:27 | disposition home or self-care (01) ==
LOC: ONC/OP 10:11
PROVIDERS: ATTEND Internal Medicine Hematology & Oncology
DX: N18.9 Chronic kidney disease, unspecified (principal); D63.1 Anemia in chronic kidney disease
CPT/HCPCS: 96372; Q5105

== ENCOUNTER 2021-05-21 09:58 | Day surgery (SDC) | payer MEDICARE, MEDICAID ==
[2021-05-21] MEDS ORDERED: EPOETIN ALFA-EPBX (NON-ESRD) 40,000 UNIT/ML VIAL ONE (10:01)
[2021-05-21 10:15] VITALS: BP 137/91; TEMP 97.9
[2021-05-21] MEDS ORDERED: EPOETIN ALFA-EPBX (ESRD) 40,000 UNIT/ML VIAL SC SCH (10:30)
== END 2021-05-21 12:09 | disposition home or self-care (01) ==
LOC: ONC/OP 09:58
PROVIDERS: ATTEND Internal Medicine Hematology & Oncology
DX: N18.9 Chronic kidney disease, unspecified (principal); D63.1 Anemia in chronic kidney disease
CPT/HCPCS: 36415; 82728; 83540; 83550; 96372; Q5106

== ENCOUNTER 2021-06-25 10:03 | Day surgery (SDC) | payer MEDICARE, MEDICAID ==
[2021-06-25] MEDS ORDERED: EPOETIN ALFA-EPBX (NON-ESRD) 40,000 UNIT/ML VIAL ONE (10:05)
[2021-06-25 10:26] VITALS: BP 139/88; TEMP 98.8
== END 2021-06-25 10:29 | disposition home or self-care (01) ==
LOC: ONC/OP 10:03
PROVIDERS: ATTEND Internal Medicine Hematology & Oncology
DX: N18.4 Chronic kidney disease, stage 4 (severe) (principal); D63.1 Anemia in chronic kidney disease
CPT/HCPCS: 96372; Q5106

== ENCOUNTER 2021-07-09 09:41 | Day surgery (SDC) | payer MEDICARE, MEDICAID ==
[2021-07-09] MEDS ORDERED: EPOETIN ALFA-EPBX (NON-ESRD) 40,000 UNIT/ML VIAL ONE (09:50)
[2021-07-09 10:03] VITALS: BP 158/90; TEMP 97.9
== END 2021-07-09 10:22 | disposition home or self-care (01) ==
LOC: ONC/OP 09:41
PROVIDERS: ATTEND Internal Medicine Hematology & Oncology
DX: N18.4 Chronic kidney disease, stage 4 (severe) (principal); D63.1 Anemia in chronic kidney disease
CPT/HCPCS: 36415; 82728; 83540; 83550; 96372; Q5106

== ENCOUNTER 2021-07-23 09:32 | Day surgery (SDC) | payer MEDICARE, MEDICAID ==
[2021-07-23] MEDS ORDERED: EPOETIN ALFA-EPBX (NON-ESRD) 40,000 UNIT/ML VIAL ONE (10:06)
[2021-07-23 10:09] VITALS: BP 143/87; TEMP 97.9
[2021-07-23] MEDS ORDERED: EPOETIN ALFA-EPBX (ESRD) 40,000 UNIT/ML VIAL SC SCH (10:45)
== END 2021-07-23 16:31 | disposition home or self-care (01) ==
LOC: ONC/OP 09:32
PROVIDERS: ATTEND Internal Medicine Hematology & Oncology
DX: N18.4 Chronic kidney disease, stage 4 (severe) (principal); D63.1 Anemia in chronic kidney disease
CPT/HCPCS: 96372; Q5106

== ENCOUNTER 2021-10-15 11:09 | Inpatient (IN) | payer MEDICARE, MEDICAID ==
[~2021-10-15 11:09] MED LIST changes: -EPOETIN ALFA-EPBX (ESRD) 40,000 UNIT/ML VIAL SC SCH; -Ferumoxytol (ERSD) 510 MG in Sodium Chloride 0.9% 250 ML 150 ML IVPB SCH; +Heparin 10,000 UNITS/ 10 ML VIAL ONE
[2021-10-15 11:53] LABS: #Eosinphils 0.2 thou/uL (0.0-0.7); #Lymphocytes 1.9 thou/uL (1.20-3.40); #Monocytes 0.4 thou/uL (0.11-0.59); #Neutrophils 4.7 thou/uL (1.40-6.50); %Basophils 0.4 % (0.0-1.0); %Eosinophils 2.4 % (0.0-10.0); %Lymphocytes 26.8 % (21.0-51.0); %Monocytes 4.9 % (0.0-10.0); %Neutrophils 65.6 % (42.0-75.0); Hemoglobin 12.2 g/dL (12.0-16.0); Mean Corpuscular HGB CONC 31.7 g/dL (32.0-36.0); Mean Corpuscular Hemoglobin 33.6 pg (27.0-31.0); Mean Platelet Volume 8.5 fL (7.4-10.4); Platelet Count 229 thou/uL (130-400); RBC Distribution Width 15.3 % (11.5-14.5); Red Blood Cell (RBC) Count 3.62 mill/uL (4.20-5.40); White Blood Cell (WBC) Count 7.2 thou/uL (4.8-10.8)
[2021-10-15 12:12] LABS: ALT (SGPT) 44 U/L (8-55); AST (SGOT) 46 U/L (5-34); Albumin 3.9 g/dL (3.5-5.0); Alkaline Phosphatase 328 U/L (40-110); Anion Gap 17 mmol/L (10-20); BUN (Urea Nitrogen) 100 mg/dL (9.8-20.1); Bilirubin, Total 0.4 mg/dL (0.2-1.2); Calc. Creatinine Clearance 0 mL/min (70-130); Calcium 9.1 mg/dL (7.8-10.44); Carbon Dioxide 16 mmol/L (22-29); Chloride 106 mmol/L (98-107); Globulin 4.7 g/dL (2.4-3.5); Glucose 99 mg/dL (70-105); Potassium 4.4 mmol/L (3.5-5.1); Protein, Total 8.6 g/dL (6.0-8.3); Sodium 135 mmol/L (136-145)
[2021-10-15 12:59] LABS: Bacteria/HPF Rare-Few HPF (None Seen); Bilirubin Negative (Negative); Blood, Urine Negative (Negative); Clarity Clear (Clear); Glucose, Urine (Dipstick) 70 mg/dL (Negative); Ketone, Urine Negative (Negative); Leukocyte Negative Leu/uL (Negative); Nitrite Negative (Negative); Protein, Urine (Dipstick) 200 mg/dL (Neg-Trace); RBC/HPF 0-3 HPF (0-3); Specific Gravity, Urine 1.009 (1.002-1.036); Squamous Epithelial 0-3 HPF (0-3); Urobilinogen Normal mg/dL (Less than 2); WBC/HPF 0-3 HPF (0-3); pH, Urine 6.5 (5.0-9.0)
[2021-10-15 13:12] LABS: HBSAB Concentration Less than 8.00 mIU/mL; HBSAg Index 0.17 S/CO (0-0.99); Hep B Core Total Ab Non-Reactive (NonReactive); Hep B Core Total Index 0.09 S/CO (0-0.79); Hep B Surf AB Non-Reactive (NonReactive); Hep B Surf Ag Non-Reactive S/CO (NonReactive); Hep C IgG Ab Non-Reactive (NonReactive); Hep C Index 0.08 S/CO (0-0.79)
[2021-10-15 13:57] LABS: SARS-CoV-2 NAA Rapid Test Not Detected (NotDetected)
[2021-10-15] MEDS ORDERED: CEFAZOLIN 2 GM in Sodium Chloride 0.9% 100 ML IVPB SCH (14:00)
[2021-10-15] MEDS ORDERED: Heparin 10,000 UNITS/ 10 ML VIAL ONE (15:18)
[2021-10-15] MEDS ORDERED: Bupivacaine PF 0.5% 30 ML VIAL ONE (15:18)
[2021-10-15] MEDS ORDERED: Lidocaine 1% w/Epinephrine 1:100K 20 ML VIAL ONE (15:18)
[2021-10-15] MEDS ORDERED: Midazolam HCl 2 mg/2 ml Vial ONE (15:21)
[2021-10-15] MEDS ORDERED: Dexmedetomidine 200 MCG/2 ML VIAL ONE (15:22)
[2021-10-15] MEDS ORDERED: Propofol 500 MG/50 ML VIAL ONE (15:22)
[2021-10-15] MEDS ORDERED: fentaNYL Citrate/PF 100 MCG/2 ML SYRINGE ONE (15:22)
[2021-10-15] MEDS ORDERED: Lidocaine 1% PF 5 ML VIAL ONE (16:00)
[2021-10-15] MEDS ORDERED: Promethazine HCl 25 MG/ML VIAL IVPB PRN (16:57)
[2021-10-15] MEDS ORDERED: Promethazine HCl 25 MG/ML VIAL IM PRN (16:57)
[2021-10-15] MEDS ORDERED: Ondansetron HCl/PF 4 MG/2 ML Vial IVP PRN (16:57)
[2021-10-15] MEDS ORDERED: traMADol HCl 50 MG TAB PO PRN (17:00)
[2021-10-15] MEDS ORDERED: Tuberculin PPD 0.1 ML VIAL I-DERMAL SCH ×2 (17:45)
[2021-10-15 20:03] VITALS: BMI 39.1
[2021-10-15] MEDS: cloNIDine 0.1 MG TAB PO SCH ×2 (20:24→20:26)
[2021-10-15] MEDS: Atorvastatin Calcium 40 MG TAB PO SCH (20:25)
[2021-10-15] MEDS: NIFEdipine XL 60 MG TAB PO SCH (20:25)
[2021-10-15] MEDS: hydrALAZINE 25 MG TAB PO SCH (20:25)
[2021-10-15] MEDS: levETIRAcetam 500 MG TAB PO SCH (20:26)
[2021-10-15] MEDS ORDERED: Sodium Bicarbonate Tab 325 MG TAB PO SCH (21:00)
[2021-10-16] MEDS: HYDROcodone/Acetaminophen 5/325 mg Tablet PO PRN ×2 (00:17→17:04)
[2021-10-16] MEDS ORDERED: Tuberculin PPD 0.1 ML VIAL I-DERMAL SCH (02:00)
[2021-10-16] MEDS: Acetaminophen 500 MG TAB PO PRN ×2 (02:19→08:00)
[2021-10-16] MEDS ORDERED: CEFAZOLIN 2 GM in Sodium Chloride 0.9% 100 ML IVPB SCH (03:00)
[2021-10-16 05:48] LABS: #Eosinphils 0.1 thou/uL (0.0-0.7); #Lymphocytes 1.2 thou/uL (1.20-3.40); #Monocytes 0.4 thou/uL (0.11-0.59); #Neutrophils 6.2 thou/uL (1.40-6.50); %Basophils 0.4 % (0.0-1.0); %Eosinophils 1.1 % (0.0-10.0); %Lymphocytes 15.6 % (21.0-51.0); %Monocytes 5.3 % (0.0-10.0); %Neutrophils 77.7 % (42.0-75.0); Hemoglobin 10.9 g/dL (12.0-16.0); Mean Corpuscular HGB CONC 32.9 g/dL (32.0-36.0); Mean Corpuscular Hemoglobin 34.7 pg (27.0-31.0); Mean Platelet Volume 8.9 fL (7.4-10.4); Platelet Count 193 thou/uL (130-400); RBC Distribution Width 15.3 % (11.5-14.5); Red Blood Cell (RBC) Count 3.15 mill/uL (4.20-5.40); White Blood Cell (WBC) Count 7.9 thou/uL (4.8-10.8)
[2021-10-16 05:58] LABS: Anion Gap 14 mmol/L (10-20); BUN (Urea Nitrogen) 76 mg/dL (9.8-20.1); Calc. Creatinine Clearance 17 mL/min (70-130); Calcium 8.6 mg/dL (7.8-10.44); Carbon Dioxide 22 mmol/L (22-29); Chloride 106 mmol/L (98-107); Glucose 88 mg/dL (70-105); Potassium 4.3 mmol/L (3.5-5.1); Sodium 138 mmol/L (136-145)
[2021-10-16] MEDS: Allopurinol 100 MG TAB PO SCH (07:59)
[2021-10-16] MEDS: Cholecalciferol 1,000 UNITS (25 MCG) TAB PO SCH (08:01)
[2021-10-16] MEDS: hydrALAZINE 25 MG TAB PO SCH ×2 (08:01→20:56)
[2021-10-16] MEDS: NIFEdipine XL 60 MG TAB PO SCH ×2 (08:02→20:56)
[2021-10-16] MEDS: cloNIDine 0.1 MG TAB PO SCH ×3 (08:02→20:57)
[2021-10-16] MEDS: Folic Acid 1 MG TAB PO SCH (08:02)
[2021-10-16] MEDS: levETIRAcetam 500 MG TAB PO SCH ×2 (08:02→20:57)
[2021-10-16] MEDS ORDERED: Calcitriol 0.25 MCG CAP PO SCH (09:00)
[2021-10-16] MEDS ORDERED: Propofol 500 MG/50 ML VIAL ONE (10:55)
[2021-10-16] MEDS ORDERED: Lidocaine 1% w/Epinephrine 1:100K 20 ML VIAL ONE (11:34)
[2021-10-16] MEDS ORDERED: Bupivacaine PF 0.5% 30 ML VIAL ONE (11:34)
[2021-10-16] MEDS ORDERED: Heparin 5,000 UNITS/ML VIAL ONE (11:34)
[2021-10-16] MEDS ORDERED: Protamine Sulfate 50 MG/5 ML VIAL ONE (11:34)
[2021-10-16] MEDS ORDERED: CEFAZOLIN 2 GM VIAL ONE (11:57)
[2021-10-16] MEDS ORDERED: Sodium Chloride 0.9% 100 ML ONE (11:58)
[2021-10-16] MEDS ORDERED: Lidocaine 1% PF 5 ML VIAL ONE (12:12)
[2021-10-16] MEDS ORDERED: Ondansetron PF 4 MG/2 ML Vial ONE (12:12)
[2021-10-16] MEDS ORDERED: PROPOFOL 200 MG/20 ML VIAL ONE (12:12)
[2021-10-16] MEDS ORDERED: PHENYLEPHRINE-NS 100 MCG/ML 10 ML SYRINGE ONE (12:12)
[2021-10-16] MEDS ORDERED: Promethazine HCl 25 MG/ML VIAL IM PRN (12:56)
[2021-10-16] MEDS ORDERED: Ondansetron HCl/PF 4 MG/2 ML Vial IVP PRN (12:56)
[2021-10-16] MEDS ORDERED: Promethazine HCl 25 MG/ML VIAL IVPB PRN (12:56)
[2021-10-16] MEDS ORDERED: Fentanyl 100 MCG/2 ML VIAL ONE (13:53)
[2021-10-16] MEDS ORDERED: Heparin 10,000 UNITS/ 10 ML VIAL ONE (14:39)
[2021-10-16] MEDS ORDERED: cloNIDine 0.1 MG TAB PO SCH (18:30)
[2021-10-16] MEDS: Atorvastatin Calcium 40 MG TAB PO SCH (20:57)
[2021-10-16] MEDS: Calcitriol 0.25 MCG CAP PO SCH (20:57)
[2021-10-17 06:34] LABS: Anion Gap 16 mmol/L (10-20); BUN (Urea Nitrogen) 56 mg/dL (9.8-20.1); Calc. Creatinine Clearance 18 mL/min (70-130); Calcium 8.4 mg/dL (7.8-10.44); Carbon Dioxide 23 mmol/L (22-29); Chloride 105 mmol/L (98-107); Glucose 95 mg/dL (70-105); Phosphorus 5.1 mg/dL (2.3-4.7); Potassium 4.2 mmol/L (3.5-5.1); Sodium 140 mmol/L (136-145)
[2021-10-17 08:23] VITALS: BP 135/91; TEMP 98.8
[2021-10-17] MEDS: Calcitriol 0.25 MCG CAP PO SCH (08:49)
[2021-10-17] MEDS: Folic Acid 1 MG TAB PO SCH (08:49)
[2021-10-17] MEDS: hydrALAZINE 25 MG TAB PO SCH (08:49)
[2021-10-17] MEDS: Allopurinol 100 MG TAB PO SCH (08:50)
[2021-10-17] MEDS: cloNIDine 0.1 MG TAB PO SCH ×2 (08:50→16:04)
[2021-10-17] MEDS: HYDROcodone/Acetaminophen 5/325 mg Tablet PO PRN (08:50)
[2021-10-17] MEDS: NIFEdipine XL 60 MG TAB PO SCH (08:50)
[2021-10-17] MEDS: Cholecalciferol 1,000 UNITS (25 MCG) TAB PO SCH (08:50)
[2021-10-17] MEDS: levETIRAcetam 500 MG TAB PO SCH (08:51)
[2021-10-17] MEDS ORDERED: READ PPD TEST SITE PO SCH (09:00)
[2021-10-17] MEDS ORDERED: Heparin 5,000 UNITS/ML VIAL SC SCH (21:00)
[2021-10-18] MEDS ORDERED: READ PPD TEST SITE PO SCH (02:00)
== END 2021-10-17 15:44 | disposition home or self-care (01) | DRG 673 ==
LOC: ERS 11:09 → T4-B 13:01
PROVIDERS: ADMIT Internal Medicine; ATTEND Internal Medicine
PROC: 5A1D70Z Performance of Urinary Filtration, Intermittent, Less than 6 Hours Per Day (ICD-10-PCS; principal; 2021-10-15)
PROC: 0JH60XZ Insertion of Tunneled Vascular Access Device into Chest Subcutaneous Tissue and Fascia, Open Approach (ICD-10-PCS; 2021-10-15)
PROC: 02H633Z Insertion of Infusion Device into Right Atrium, Percutaneous Approach (ICD-10-PCS; 2021-10-15)
PROC: 02H633Z Insertion of Infusion Device into Right Atrium, Percutaneous Approach (ICD-10-PCS; 2021-10-15)
PROC: B5181ZA Fluoroscopy of Superior Vena Cava using Low Osmolar Contrast, Guidance (ICD-10-PCS; 2021-10-15)
PROC: B548ZZA Ultrasonography of Superior Vena Cava, Guidance (ICD-10-PCS; 2021-10-15)
PROC: 031C0ZF Bypass Left Radial Artery to Lower Arm Vein, Open Approach (ICD-10-PCS; 2021-10-16)
DX: I12.0 Hypertensive chronic kidney disease with stage 5 chronic kidney disease or end stage renal disease (principal); N18.6 End stage renal disease; E87.2 Acidosis; N25.81 Secondary hyperparathyroidism of renal origin; Z20.822 Contact with and (suspected) exposure to COVID-19; G40.909 Epilepsy, unspecified, not intractable, without status epilepticus; E78.5 Hyperlipidemia, unspecified; M10.9 Gout, unspecified; D63.1 Anemia in chronic kidney disease; E88.09 Other disorders of plasma-protein metabolism, not elsewhere classified; Z99.2 Dependence on renal dialysis; Z79.899 Other long term (current) drug therapy; Z79.84 Long term (current) use of oral hypoglycemic drugs; Z98.890 Other specified postprocedural states; Z80.9 Family history of malignant neoplasm, unspecified; Z82.49 Family history of ischemic heart disease and other diseases of the circulatory system; Z84.1 Family history of disorders of kidney and ureter
CPT/HCPCS: 36415; 36416; 71045; 80048; 80053; 81003; 81015; 82607; 82746; 83970; 84100; 85025; 86580; 86704; 86706; 86803; 87340; 93005; 93010; 93970; 96374; C1751; C1752; C1776; J1644; J2250; J2405; J2704; J2720; J3010; J3490; S0020; U0002

== ENCOUNTER → 2022-05-09 | Outpatient (CLI) | payer MEDICARE, MEDICAID | LOC: SLEEPLAB 04-09 17:00 | PROVIDERS: ATTEND Family Medicine | DX: G47.33 Obstructive sleep apnea (adult) (pediatric) (principal); R53.83 Other fatigue; E66.9 Obesity, unspecified; E11.9 Type 2 diabetes mellitus without complications; R06.83 Snoring; I10 Essential (primary) hypertension | CPT/HCPCS: 95811 ==

== ENCOUNTER 2023-07-24 13:31 | Outpatient (CLI) | payer MEDICARE, OTHER | END 2023-07-24 13:32 | disposition home or self-care (01) | LOC: BICMAMMO 13:31 | PROVIDERS: ATTEND Family Medicine | DX: Z12.31 Encounter for screening mammogram for malignant neoplasm of breast (principal); Z80.3 Family history of malignant neoplasm of breast | CPT/HCPCS: 77063; 77067 ==

== ENCOUNTER 2025-01-05 00:26 | Inpatient (IN) | payer OTHER, MEDICAID ==
[2025-01-05 02:23] LABS: Actual Bicarbonate (HCO3v) 21.1 mEq/L (22-28); Base Excess -2.9 mEq/L (-2.0 to +3.0); Calcium, Ionized (venous) 1.13 mmol/L (1.16-1.32); Chloride (VBG) 99 mmol/L (98-106); Hematocrit-VBG 33 % (36.0-47.0); Hemoglobin (Hb) 11.3 g/dL (11.7-16.0); Potassium (VBG) 4.01 mmol/L (3.70-5.30); Sodium 138 mmol/L (133-146)
[2025-01-05 02:30] LABS: #Basophils 0.03 10x3/uL (0.0-0.2); #Eosinophils 0.19 10x3/uL (0.0-0.7); #Monocytes 1.03 10x3/uL (0.11-0.59); #Neutrophils 7.32 10x3/uL (1.40-6.50); %Basophils 0.3 % (0.0-1.0); %Eosinophils 1.7 % (0.0-10.0); %Lymphocytes 21.7 % (21.0-51.0); %Monocytes 9.4 % (0.0-10.0); %Neutrophils 66.6 % (42.0-75.0); Hematocrit 31.6 % (36.0-47.0); Hemoglobin 10.1 g/dL (12.0-16.0); Mean Corpuscular Hemoglobin 34.4 pg (27.0-31.0); Mean Corpuscular Volume 107.5 fL (78.0-98.0); Platelet Count 212 10x3/uL (130-400); Red Blood Cell (RBC) Count 2.94 mill/uL (4.20-5.40); White Blood Cell (WBC) Count 10.99 10x3/uL (4.8-10.8)
[2025-01-05 03:01] LABS: ALT (SGPT) 15 U/L (Less than 34); AST (SGOT) 26 U/L (11-34); Albumin 3.3 g/dL (3.1-4.5); Alkaline Phosphatase 294 U/L (40-110); Anion Gap 22 mmol/L (10-20); BUN (Urea Nitrogen) 71 mg/dL (9.8-20.1); Bilirubin, Total 0.6 mg/dL (0.3-1.2); Calc. Creatinine Clearance 0 mL/min (70-130); Calcium 9.3 mg/dL (7.8-10.44); Carbon Dioxide 23 mmol/L (23-31); Chloride 99 mmol/L (98-107); Globulin 4.6 g/dL (2.4-3.5); Glucose 97 mg/dL (80-115); Potassium 4.1 mmol/L (3.5-5.1); Sodium 140 mmol/L (136-145)
[2025-01-05] MEDS ORDERED: Acetaminophen 325 MG TAB PO PRN (03:26)
[2025-01-05] MEDS ORDERED: Ondansetron PF 4 MG/2 ML Vial IVP PRN (03:26)
[2025-01-05 05:10] LABS: ALT (SGPT) 11 U/L (Less than 34); AST (SGOT) 30 U/L (11-34); Albumin 3.4 g/dL (3.1-4.5); Alkaline Phosphatase 303 U/L (40-110); Anion Gap 20 mmol/L (10-20); BUN (Urea Nitrogen) 43 mg/dL (9.8-20.1); Bilirubin, Total 0.5 mg/dL (0.3-1.2); Calc. Creatinine Clearance 0 mL/min (70-130); Calcium 9.8 mg/dL (7.8-10.44); Carbon Dioxide 24 mmol/L (23-31); Chloride 100 mmol/L (98-107); Globulin 5.6 g/dL (2.4-3.5); Glucose 92 mg/dL (80-115); Potassium 3.7 mmol/L (3.5-5.1); Sodium 140 mmol/L (136-145)
[2025-01-05 05:41] LABS: Hep B Core Total Index 0.11 S/CO (0-0.79); Hep C Index 0.12 S/CO (0-0.79)
[2025-01-05 06:47] LABS: Hep B Surf Ag NONREACTIVE S/CO (NonReactive)
[2025-01-05 06:49] LABS: HBSAB Concentration 135.10 mIU/mL; Hep B Core Total Ab NONREACTIVE (NonReactive)
[2025-01-05 06:50] LABS: Hep C IgG Ab NONREACTIVE S/CO (NonReactive)
[2025-01-05 07:49] VITALS: BMI 35.2
[2025-01-05] MEDS: NIFEdipine XL 60 MG ER.TAB PO SCH (09:28)
[2025-01-05] MEDS: levETIRAcetam 500 MG TAB PO SCH (09:28)
[2025-01-05] MEDS: cloNIDine 0.1 MG TAB PO SCH (09:29)
[2025-01-05] MEDS: Phenytoin 100 MG (4 mL) UDCUP PO SCH ×2 (09:42→20:13)
[2025-01-05] MEDS ORDERED: Heparin 10,000 UNITS/ 10 ML VIAL ONE (09:44)
[2025-01-05 10:51] LABS: #Basophils Less than 0.03 10x3/uL (0.0-0.2); #Eosinophils 0.13 10x3/uL (0.0-0.7); #Monocytes 0.72 10x3/uL (0.11-0.59); #Neutrophils 5.33 10x3/uL (1.40-6.50); %Basophils 0.3 % (0.0-1.0); %Eosinophils 1.7 % (0.0-10.0); %Lymphocytes 19.9 % (21.0-51.0); %Monocytes 9.3 % (0.0-10.0); %Neutrophils 68.4 % (42.0-75.0); Hematocrit 29.6 % (36.0-47.0); Hemoglobin 9.5 g/dL (12.0-16.0); Mean Corpuscular Hemoglobin 33.9 pg (27.0-31.0); Mean Corpuscular Volume 105.7 fL (78.0-98.0); Platelet Count 186 10x3/uL (130-400); Red Blood Cell (RBC) Count 2.80 mill/uL (4.20-5.40); White Blood Cell (WBC) Count 7.78 10x3/uL (4.8-10.8)
[2025-01-05] MEDS: EPOETIN ALFA-EPBX (ESRD) 10,000 UNITS/ML VIAL IVP SCH (11:46)
[2025-01-05] MEDS ORDERED: Iopamidol 370 76% 100 ML VIAL ONE (15:16)
[2025-01-06 05:25] LABS: Anion Gap 18 mmol/L (10-20); BUN (Urea Nitrogen) 50 mg/dL (9.8-20.1); Calc. Creatinine Clearance 9 mL/min (70-130); Calcium 9.4 mg/dL (7.8-10.44); Carbon Dioxide 27 mmol/L (23-31); Chloride 100 mmol/L (98-107); Glucose 81 mg/dL (80-115); Potassium 3.7 mmol/L (3.5-5.1); Sodium 141 mmol/L (136-145)
[2025-01-06] MEDS ORDERED: Heparin 10,000 UNITS/ 10 ML VIAL ONE (09:48)
[2025-01-07] MEDS: Calcium Carbonate 500 MG ChewTAB PO SCH (00:30)
[2025-01-07 04:19] LABS: Anion Gap 19 mmol/L (10-20); BUN (Urea Nitrogen) 64 mg/dL (9.8-20.1); Calc. Creatinine Clearance 8 mL/min (70-130); Calcium 9.3 mg/dL (7.8-10.44); Carbon Dioxide 25 mmol/L (23-31); Chloride 98 mmol/L (98-107); Glucose 149 mg/dL (80-115); Potassium 4.0 mmol/L (3.5-5.1); Sodium 138 mmol/L (136-145)
[2025-01-07] MEDS: Folic Acid 1 MG TAB PO SCH (09:34)
[2025-01-07] MEDS: Calcitriol 0.25 MCG CAP PO SCH (09:34)
[2025-01-07] MEDS: Allopurinol 100 MG TAB PO SCH (09:34)
[2025-01-07 17:58] VITALS: BP 125/85; TEMP 97.9
== END 2025-01-07 18:20 | disposition home or self-care (01) | DRG 640 ==
LOC: ERS 00:26 → 2SE 03:11
PROVIDERS: ADMIT Internal Medicine; ATTEND Internal Medicine
DX: E87.70 Fluid overload, unspecified (principal); J81.0 Acute pulmonary edema; J96.01 Acute respiratory failure with hypoxia; N18.6 End stage renal disease; I12.0 Hypertensive chronic kidney disease with stage 5 chronic kidney disease or end stage renal disease; E78.5 Hyperlipidemia, unspecified; G40.909 Epilepsy, unspecified, not intractable, without status epilepticus; D63.1 Anemia in chronic kidney disease; Z79.899 Other long term (current) drug therapy; Z91.158 Patient's noncompliance with renal dialysis for other reason; Z99.2 Dependence on renal dialysis
CPT/HCPCS: 36415; 71045; 71275; 80048; 80053; 80185; 82805; 84484; 85025; 86704; 86706; 86803; 87340; 93005; J1644; Q5105; Q9967

== ENCOUNTER 2025-05-25 05:23 | Emergency (ER) | payer MEDICARE, MEDICAID ==
[2025-05-25 06:25] LABS: #Basophils Less than 0.03 10x3/uL (0.0-0.2); #Eosinophils 0.12 10x3/uL (0.0-0.7); #Monocytes 0.81 10x3/uL (0.11-0.59); #Neutrophils 5.05 10x3/uL (1.40-6.50); %Basophils 0.1 % (0.0-1.0); %Eosinophils 1.6 % (0.0-10.0); %Lymphocytes 21.7 % (21.0-51.0); %Monocytes 10.5 % (0.0-10.0); %Neutrophils 65.8 % (42.0-75.0); Hematocrit 33.9 % (36.0-47.0); Hemoglobin 11.3 g/dL (12.0-16.0); Mean Corpuscular Hemoglobin 35.2 pg (27.0-31.0); Mean Corpuscular Volume 105.6 fL (78.0-98.0); Platelet Count 162 10x3/uL (130-400); Red Blood Cell (RBC) Count 3.21 mill/uL (4.20-5.40); White Blood Cell (WBC) Count 7.68 10x3/uL (4.8-10.8)
[2025-05-25 06:46] LABS: ALT (SGPT) 21 U/L (Less than 34); AST (SGOT) 40 U/L (11-34); Albumin 3.2 g/dL (3.1-4.5); Alkaline Phosphatase 291 U/L (40-110); Anion Gap 21 mmol/L (10-20); BUN (Urea Nitrogen) 85 mg/dL (9.8-20.1); Bilirubin, Total 0.6 mg/dL (0.3-1.2); Calc. Creatinine Clearance 0 mL/min (70-130); Calcium 9.4 mg/dL (7.8-10.44); Carbon Dioxide 23 mmol/L (23-31); Chloride 99 mmol/L (98-107); Globulin 4.3 g/dL (2.4-3.5); Glucose 104 mg/dL (80-115); Potassium 4.6 mmol/L (3.5-5.1); Sodium 138 mmol/L (136-145)
[2025-05-25 08:53] LABS: HBSAB Concentration 102.00 mIU/mL; Hep B Core Total Ab NONREACTIVE (NonReactive); Hep B Core Total Index 0.11 S/CO (0-0.79); Hep B Surf Ag NONREACTIVE S/CO (NonReactive); Hep C IgG Ab NONREACTIVE S/CO (NonReactive); Hep C Index 0.10 S/CO (0-0.79)
== END 2025-05-25 16:08 | disposition home or self-care (01) ==
LOC: ERS 05:23
DX: E87.70 Fluid overload, unspecified (principal); I12.0 Hypertensive chronic kidney disease with stage 5 chronic kidney disease or end stage renal disease; N18.6 End stage renal disease; Z99.2 Dependence on renal dialysis
CPT/HCPCS: 36415; 71045; 80053; 85025; 86704; 86706; 86803; 87340; 87428; 93005